=== PATIENT | male | born 1955 ===

== ENCOUNTER 2016-12-01 12:50 | Day surgery (SDC) | payer BC ==
[~2016-12-01] VITALS: Ht 180.3 cm; Wt 105.8 kg
[~2016-12-01 12:50] MED LIST: AMLODIPINE BESY10 MG PO; ASPIRIN ADULT L81 M1 PO; CHLORTHALIDONE25 MG PO; METOPROLOL TAR100 MG PO
--- NOTE | 2016-12-01 18:05 | Provider's Discharge Care Plan ---
Problem, Goal, Plan Problem List 1. Diverticulosis Instructions: high fiber diet
--- NOTE | 2016-12-01 18:05 | Provider's Discharge Care Plan ---
Problem, Goal, Plan Problem List 1. Diverticulosis Instructions: high fiber diet
[2016-12-01 18:15] VITALS: BP 136/75
[2016-12-01 18:31] VITALS: BP 133/83
[2016-12-01 18:45] VITALS: BP 137/59
--- NOTE | 2016-12-01 19:29 | OPERATIVE REPORT ---
DATE OF SURGERY: 12/01/2016 SURGEON: Alexander Boland MD PREOPERATIVE DIAGNOSIS: 1. Rectal pain 2. Additionally includes colon cancer risk POSTOPERATIVE DIAGNOSIS: 1. Diverticulosis 2. Additionally includes colon cancer risk PROCEDURE PERFORMED: 1. Colonoscopy/screening colonoscopy ANESTHESIA: Total IV general. CONDITION: The patient left in good condition. COMPLICATIONS: No intraoperative complications were encountered. INDICATIONS: The patient is a 61-year-old man with a 3-week history of episodic rectal pain. This pain has since subsided, but he is concerned because of a remote history of an anal procedure, possibly a fistulotomy done in the . SURGICAL TECHNIQUE: The patient was taken to the endoscopy suite, where total IV general was administered and the patient placed in the left lateral decubitus position. Direct inspection of the anus revealed no external sources of pain or bleeding. Digital palpation was done and the colonoscope inserted. The colonoscope was maneuvered through the colon under direct vision. There were multiple diverticula in the sigmoid colon. The cecum and ileocecal valve were reached. On withdrawal, the entire colon was inspected, including a retroflexed view of the rectum. There were no polyps or tumors seen, no obvious colitis or other sources of pain.
== END 2016-12-01 19:23 | disposition home or self-care (01) ==
LOC: OR SRH 12:50 → SCU SRH 12:54 → OR SRH 14:30
PROVIDERS: Surgery
PROC: 0DJD8ZZ Inspection of Lower Intestinal Tract, Via Natural or Artificial Opening Endoscopic (ICD-10-PCS; principal; 2016-12-01 14:30)
DX: K57.30 Diverticulosis of large intestine without perforation or abscess without bleeding (principal); K62.89 Other specified diseases of anus and rectum; I10 Essential (primary) hypertension
CPT/HCPCS: 29229; 29240; 50004; 60001; 83526